=== PATIENT | female | born 1980 | race Caucasian/White ===

== ENCOUNTER 2016-04-03 06:40 | Day surgery (SDC) | payer OTHER ==
[2016-04-03] MEDS ORDERED: PROPOFOL 200 MG/20 ML VIAL ONE (06:55)
[2016-04-03] MEDS ORDERED: fentaNYL 100 MCG/2 ML INJ ONE (06:55)
[2016-04-03] MEDS ORDERED: LIDOCAINE 2% 5 ML SDV ONE (06:55)
[2016-04-03] MEDS ORDERED: ONDANSETRON 4 MG/2 ML VIAL ONE (06:57)
[2016-04-03] MEDS ORDERED: DEXAMETHASONE 4 MG/ML VIAL ONE ×2 (06:58)
[2016-04-03] MEDS ORDERED: KETOROLAC 30 MG/1 ML SDV ONE (06:58)
[2016-04-03] MEDS ORDERED: SCOPOLAMINE HYDROBROMIDE 1.5 MG PATCH TD ONE (07:00)
[2016-04-03] MEDS ORDERED: LR 1,000 ML IV ONE (07:03)
[2016-04-03] MEDS ORDERED: SILVER NITRATE APPLICATOR 1 APPL TP ONE (07:19)
[2016-04-03] MEDS ORDERED: MIDAZOLAM 2 MG/2 ML VIAL ONE (07:54)
--- NOTE | 2016-04-03 12:39 | GOP ---
[f rep st] OPERATIVE REPORT DATE OF OPERATION: 04/03/2016 SURGEON: Mayra Patino MD ANESTHESIA: Geovanny Sarmiento MD PREOPERATIVE DIAGNOSIS: 1. Dysfunctional uterine bleeding. 2. Uterine polyps. POSTOPERATIVE DIAGNOSIS: 1. Dysfunctional uterine bleeding. 2. Uterine polyps. PROCEDURE PERFORMED: Hysteroscopic polypectomy. FINDINGS: Multiple small polyps on the posterior aspect of the uterus. Normal tubal ostia. Normal c ervix. ESTIMATED BLOOD LOSS: Minimal. DESCRIPTION OF PROCEDURE: With informed consent signed, patient taken to the operating room, placed under general anesthesia, placed in the low dorsal lithotomy position, prepped and draped in the usua l sterile fashion. Bladder previously emptied. Tenaculum placed on the anterior lip of the cervix. Cervix dilated to 9.5 mm. Hysteroscope placed u sing normal saline as the filling medium. Findings as noted above. [employer] hyster oscopic morcellator placed into the uterine cavity and resection of all the polyps done. When it was felt that the uterine lining was completely clear, photos taken of the before and after. Hysteroscope removed and net fluid deficit less than 100 cc. Patient placed in supine position, awak ened in the operating room, taken to the recovery room in stable condition, tolerating the procedur e well. INDICATIONS FOR PROCEDURE: Patient is a 35-year-old, G0, who complains of very heavy bleeding episod es that are problematic, she had an ultrasound sonohysterogram done 02/21/2016 that showed multiple uterine polyps, largest measuring 1 cm. Patient desires definitive therapy. Also interested in chil dbearing, so would like to have this done before trying to conceive. COMPLICATIONS: None. /[id number]/MODL
== END 2016-04-03 10:35 | disposition home or self-care (01) ==
LOC: FSGY 06:40
PROVIDERS: ATTEND Obstetrics & Gynecology Gynecology
PROC: 0UB98ZZ Excision of Uterus, Via Natural or Artificial Opening Endoscopic (ICD-10-PCS; principal; 2016-04-03 08:00)
DX: N84.0 Polyp of corpus uteri (principal); N93.8 Other specified abnormal uterine and vaginal bleeding
CPT/HCPCS: 58558; C1782; J1100; J1885; J2250; J2405; J2704; J3010